=== PATIENT | male | born 1960 | race Caucasian/White ===

== ENCOUNTER 2023-12-04 10:20 | Observation (INO) ==
[~2023-12-04 10:20] MED LIST: Lidocaine 2% PF 5 ML VIAL ONE; Midazolam 2 mg/2 ml VIAL 1 mg/ml 2 ml VIAL (2 mg) ONE; Propofol 10 MG/ML 20 ML BTL ONE; Rocuronium 50 mg VIAL 10 mg/ml 5 ml VIAL (50 mg) ONE; fentaNYL 250 mcg/5 ml 50 MCG/ML 5 ml VIAL (250 MCG) ONE
[2023-12-04] MEDS ORDERED: ceFAZolin 2 GM PREMIX 2 GM/50 ML BAG ONE (10:53)
[2023-12-04] MEDS ORDERED: Dexamethasone IV 4 MG/ML VIAL 1 ml VIAL ONE (13:17)
[2023-12-04] MEDS ORDERED: Ondansetron 4 mg VIAL 2 MG/ML 2 ml VIAL ONE (13:17)
[2023-12-04] MEDS ORDERED: fentaNYL 100 mcg/2 ml 50 MCG/ML VIAL ONE (13:31)
[2023-12-04] MEDS ORDERED: HYDROmorphone 0.5 MG/0.5 ML SYRINGE ONE (13:31)
[2023-12-04] MEDS ORDERED: Dexmedetomidine 200 mcg/2 ml 2 ml VIAL (200 mcg) ONE (13:32)
[2023-12-04] MEDS ORDERED: Rocuronium 50 mg VIAL 10 mg/ml 5 ml VIAL (50 mg) ONE (13:51)
[2023-12-04] MEDS ORDERED: Acetaminophen IV 1 GM/100ML 1,000 MG/100 ML BAG IV ONE (13:51)
[2023-12-04] MEDS ORDERED: Lidocaine 2% PF 5 ML VIAL ONE (15:34)
[2023-12-04] MEDS ORDERED: Ondansetron 4 mg VIAL 2 MG/ML 2 ml VIAL IV PRN (15:50)
[2023-12-04] MEDS ORDERED: Naloxone 0.4 mg VIAL 0.4 mg/ml 1 ml VIAL IV PRN (15:50)
[2023-12-04] MEDS ORDERED: fentaNYL 100 mcg/2 ml 50 MCG/ML VIAL IV PRN (15:50)
[2023-12-04 16:26] LABS: Albumin 3.9 g/dL (3.2-5.2); Albumin/Globulin Ratio 1.3 (1-3); Creatinine, Serum 1.38 mg/dL (0.67-1.17); Magnesium 1.7 mg/dL (1.9-2.7); Phosphorus 3.9 mg/dL (2.5-5.0); Potassium 5.8 mmol/L (3.5-5.0); Total Bilirubin 0.3 mg/dL (0.2-1.0); Total Protein 6.9 g/dL (6.4-8.9); eGFR CKD-EPI 57.1 (>60)
[2023-12-04] MEDS ORDERED: Senna TAB 8.6 mg TAB PO PRN (18:47)
[2023-12-04] MEDS: Magnesium Sulfate 2 gm BAG 2 GM/50 ML BAG IVPB ONE (22:11)
[2023-12-04] MEDS: SODIUM ZIRCONIUM CYCLOSILICATE 10 GM PACKET PO ONE (22:12)
[2023-12-04] MEDS: Enoxaparin 40 MG/0.4 ML SYR SUBCUT SCH (22:12)
[2023-12-04] MEDS: NS 0.9% 1000 ml BAG 1,000 ML IV ONE (22:14)
[2023-12-05 01:07] LABS: High Sensitivity Troponin 1 Hr 19 pg/mL (<20)
[2023-12-05 01:37] LABS: Calcium 10.9 mg/dL (8.6-10.3); Creatinine, Serum 1.27 mg/dL (0.67-1.17); Magnesium 2.2 mg/dL (1.9-2.7); Potassium 5.2 mmol/L (3.5-5.0); eGFR CKD-EPI 63.1 (>60)
[2023-12-05 06:57] LABS: Albumin/Globulin Ratio 1.6 (1-3); Calcium 10.8 mg/dL (8.6-10.3); Creatinine, Serum 1.3 mg/dL (0.67-1.17); Globulin 2.5 g/dL (2-4); Potassium 4.7 mmol/L (3.5-5.0); Total Bilirubin 0.4 mg/dL (0.2-1.0); Total Protein 6.5 g/dL (6.4-8.9); eGFR CKD-EPI 61.3 (>60)
[2023-12-05 08:15] LABS: ABS Basophils 0.1 10^3/uL (0.0-0.1); ABS Monocytes 1.2 10^3/uL (0.0-1.1); ABS Neutrophils 11.5 10^3/uL (1.5-7.6); ABS Nucleated RBC 0.01 10^3/ul; Eosinophil % 0.2 %; Hematocrit 33.1 % (38-53); Hemoglobin 11.2 g/dL (13.2-16.3); Lymphocyte % 18.7 %; Mean Corpuscular Hemoglobin 30.7 pg (27-33); Mean Corpuscular Hgb Conc 33.9 g/dL (31-36); Mean Corpuscular Volume 90.5 fL (80-97); Mean Platelet Volume 8.1 fL (7.5-11.2); Platelet Count 237 10^3/uL (150-450); Red Blood Count 3.65 10^6/uL (4.06-5.63); Red Cell Distribution Width 14.3 % (12-17); White Blood Count 15.8 10^3/uL (3.6-10.2)
[2023-12-05] MEDS: Venlafaxine XR 75 mg PO SCH (09:02)
[2023-12-05] MEDS: Sulfur Hexaflouride MICROSPHR 25 MG VIAL IV ONE (09:12)
[2023-12-05 11:16] VITALS: BP 141/70
== END 2023-12-05 10:50 | disposition home or self-care (01) ==
LOC: OR 10:20 → AA 18:45 → INTOOBSV 18:45 → MEDTELE 20:19
PROVIDERS: ADMIT Internal Medicine; ATTEND Hospitalist